=== PATIENT | male | born 1975 | race Caucasian/White ===

== ENCOUNTER 2020-02-02 13:58 | Outpatient (CLI) | payer OTHER, SELFPAY ==
--- NOTE | 2020-02-02 14:13 | CT_ITS ---
WS: [id number] CT CHEST WITH INTRAVENOUS CONTRAST HISTORY: LEFT SIDED CHEST WALL PAIN TECHNIQUE: Contiguous 5 mm axial imaging performed on the thorax. Coronal and sagittal reformats are submitted. All CT scans at [facility] use at least one of these dose optimization techniq ues: automated exposure control; mA and/or kV adjustment per patient size (includes targeted exams wh ere dose is matched to clinical indication); or iterative reconstruction. CONTRAST: Omnipaque 300; 95 mL IV. DLP: 965.74 mGycm COMPARISON: None available. Lungs and central airway: Poor inspiratory effort. There is marked crowding the lung markings with luque ziness and groundglass attenuation which would probably improve with better inspiratory effort. 4 mm nodule at the RIGHT lung base, image 40 of series 3. Pleura: Normal. No pleural effusion. Heart and pericardium: Normal size heart. No pericardial effusion. Mediastinum and lyudmila: No mediastinum or hilar adenopathy. Vessels: Normal size aortic and pulmonary artery. No coronary artery calcifications. Chest wall and lower neck: Moderate bilateral gynecomastia. No axillary adenopathy. Upper abdomen: Hepatic steatosis. Entire liver is not visualized but does appear slightly enlarged. V isualized gallbladder is normal. No adrenal mass. Spleen is not enlarged. Osseous structures: No destructive bone lesions. No fractures. CT/CT chest w con* [id number] IMPRESSION: 1. Poor inspiration resulting in marked crowding of the lung markings. Alterna tively this may represent diffuse pneumonitis. 2. Marked gynecomastia. 3. No cardiomegaly or adenopathy. 4. No rib lesions.
[2020-02-02] MEDS: iohexol 300 mg/mL 100 mL Btl IV (14:35)
== END 2020-02-02 13:59 | disposition home or self-care (01) ==
LOC: RADWPI 14:06
PROVIDERS: PCP Family Medicine; Visit Provider Family Medicine
DX: R07.89 Other chest pain (principal); N62 Hypertrophy of breast
CPT/HCPCS: 71260; Q9967

== ENCOUNTER → 2020-02-15 15:37 | Outpatient (BNVA) | payer OTHER, SELFPAY | PROVIDERS: PCP Family Medicine; Visit Provider Specialist | DX: G56.22 Lesion of ulnar nerve, left upper limb (principal) | CPT/HCPCS: 95908 ==